=== PATIENT | male | born 1975 | race Hispanic/Latino ===

== ENCOUNTER 2020-06-09 19:04 | Emergency (ER) | payer BC ==
[~2020-06-09] VITALS: Ht 170.2 cm; Wt 83.0 kg
[~2020-06-09 19:04] MED LIST: BACLOFEN10 MG PO; FLEXERIL PO; NAPROSYN375 MG PO; NO MEDS; ULTRAM50 M1 PO; VENTOLIN HF1 IN; ZANAFLEX4 MG PO
[2020-06-09 19:48] LABS: HEMATOCRIT 45.5 % (39.0-50.0); HEMOGLOBIN 14.4 g/dl (14.0-18.0); IMMATURE GRANULOCYTES 0.6 % (0.0-5.0); MEAN CELL VOLUME 81.7 fL CALC (80.0-100.0); MEAN CORPUSCULAR HGB 25.9 pG CALC (26.0-32.0); MEAN CORPUSCULAR HGB CONC 31.6 g/dL CAL (32.0-36.0); NEUT# 7.9 thou/uL (1.82-7.42); RED BLOOD COUNT 5.57 mill/uL (4.70-6.10); RED CELL DISTRI WIDTH 14.1 % (11.5-15.5)
[2020-06-09 19:55] LABS: ALBUMIN 4.5 g/dL (3.2-5.0); ALKALINE PHOSPHATASE 63 u/l (38-126); ANION GAP 12 (6-22 (CALC)); BILIRUBIN, TOTAL 0.7 mg/dL (0.0-1.4); BUN 19 mg/dL (9-20); BUN/CREATININE RATIO 21 (12-20 (CALC)); CARBON DIOXIDE 26 mmol/l (22-30); CHLORIDE 101 mmol/l (95-108); CREATININE 0.9 mg/dL (0.7-1.3); GFR > 60 ML/MIN (>=60 (CALC)); GFR FOR AFR.AMER. > 60 ML/MIN (>=60 (CALC)); POTASSIUM 3.7 mmol/l (3.5-5.1); SODIUM 135 mmol/l (137-146); TOTAL PROTEIN 7.7 g/dL (6.3-8.2)
[2020-06-09 20:09] LABS: SGOT/AST 58 u/l (17-59)
[2020-06-09 20:55] VITALS: BP 105/61
== END 2020-06-09 20:55 | disposition home or self-care (01) | DRG 866 ==
LOC: ED 19:04
PROVIDERS: Family Medicine
DX: B34.9 Viral infection, unspecified (principal); Z20.828 Contact with and (suspected) exposure to other viral communicable diseases

== ENCOUNTER 2020-10-10 07:20 | Day surgery (SDC) | payer BC ==
[~2020-10-10] VITALS: Ht 170.2 cm; Wt 81.6 kg
[~2020-10-10 07:20] MED LIST changes: +FISH OIL1000 MG PO; +MULTI VIT PO; +PROAIR HFA108 MCG/AC IH
[2020-10-10] MEDS ORDERED: PERCOCET 5/325M1 TAB PO (09:59)
[2020-10-10 11:03] VITALS: BP 146/90
== END 2020-10-10 11:11 | disposition home or self-care (01) | DRG 352 ==
LOC: ORM 07:20
PROVIDERS: ATTEND Surgery
PROC: 0YU54JZ Supplement Right Inguinal Region with Synthetic Substitute, Percutaneous Endoscopic Approach (ICD-10-PCS; principal; 2020-10-10)
DX: K40.90 Unilateral inguinal hernia, without obstruction or gangrene, not specified as recurrent (principal); D17.6 Benign lipomatous neoplasm of spermatic cord; Z20.822 Contact with and (suspected) exposure to COVID-19
CPT/HCPCS: J0131; J1100

== ENCOUNTER 2024-10-12 06:53 | Day surgery (SDC) | payer OTHER ==
[~2024-10-12] VITALS: Ht 172.7 cm; Wt 95.3 kg
[~2024-10-12 06:53] MED LIST changes: +FISH OIL1000 M1 PO; +PERCOCET 5/325M1 TAB PO; +SYMBICORT 80-4.5MCG IN; +VENTOLIN HFA108 MCG IN
[2024-10-12] MEDS ORDERED: SODIUM CHLORIDE 0.9% 1,000 ML IV ONE (06:57)
[2024-10-12] MEDS ORDERED: FAMOTIDINE 10MG/ML 2ML SDV IV ONE (06:57)
[2024-10-12 08:38] VITALS: BP 112/65
[2024-10-12] MEDS ORDERED: PROPOFOL 500 MG/50 ML VIAL IV ONE (11:21)
[2024-10-12] MEDS ORDERED: LIDOCAINE HCL 2% 2ML SDV IV ONE (11:21)
[2024-10-12] MEDS ORDERED: GLYCOPYRROLATE 0.2 MG/ML IV ONE (11:21)
== END 2024-10-12 08:51 | disposition home or self-care (01) | DRG 951 ==
LOC: ORM 06:53
PROVIDERS: ATTEND Surgery
PROC: 0DBM8ZX Excision of Descending Colon, Via Natural or Artificial Opening Endoscopic, Diagnostic (ICD-10-PCS; principal; 2024-10-12)
DX: Z12.11 Encounter for screening for malignant neoplasm of colon (principal); D12.4 Benign neoplasm of descending colon; K64.8 Other hemorrhoids; J45.909 Unspecified asthma, uncomplicated; Z80.0 Family history of malignant neoplasm of digestive organs
CPT/HCPCS: J1596